=== PATIENT | male | born 1980 | race Caucasian/White ===

== ENCOUNTER 2022-11-17 04:13 | Inpatient (IN) | payer OTHER ==
[2022-11-17 04:21] LABS: Glucose,Whole Blood 126 mg/dL (70-110)
[2022-11-17] MEDS ORDERED: HEPARIN SODIUM 1,000 UN/ML (10ML VL) ONE (04:27)
[2022-11-17] MEDS ORDERED: fentaNYL (PF) 50 MCG/ML 2 ML AMP ONE (04:27)
[2022-11-17] MEDS ORDERED: VERAPAMIL 2.5 MG/ML 2 ML AMP ONE (04:27)
[2022-11-17] MEDS ORDERED: NALOXONE 0.4 MG/ML 1 ML VIAL IV PRN (04:30)
[2022-11-17 04:36] LABS: Basophils # (A) 0.1 k/uL (0-0.2); Basophils % (A) 0 %; Eosinophils # (A) 0.4 k/uL (0-0.7); Eosinophils % (A) 3 %; HCT 45.4 % (39.0-53.0); HGB 14.6 gm/dL (13.0-17.5); Lymphocytes # (A) 2.7 k/uL (1.0-4.8); Lymphocytes % (A) 18 %; MCH 29.3 pg (25.0-35.0); MCHC 32.2 g/dL (31.0-37.0); MCV 90.9 fL (80.0-100.0); Mean Platelet Volume 7.4; Monocytes # (A) 0.5 k/uL (0-1.0); Monocytes % (A) 3 %; Neutrophils # (A) 10.8 k/uL (1.3-7.7); Neutrophils % (A) 75 %; Platelet Count 253 k/uL (150-450); RBC 4.99 m/uL (4.30-5.90); RDW 13.5 % (11.5-15.5); WBC 14.6 k/uL (3.8-10.6)
--- NOTE | 2022-11-17 04:41 | P.HPIM ---
History of Present Illness H&P Date: 11/17/22 Chief Complaint: chest pain 42 year old male with hypertension patient is transferred from [facility] for STEMI, he went there for chest pain , that woke him up from sleep, denies any cardiac history , describes severe crushing left sided chest pain non radiating with profuse sweating and MONCHO. he was taken to the other facility and diagnosed with STEMI and sent to our facility for cardiac care. patient admits to smoking , denies any illicit drugs no transfer papers were available at time of my evaluation no blood work available at time of evaluation EKG done at our facility shows diffuse T wave inversion in precordial leads. patient rushed to the slab polisher Past Medical History Past Medical History: Hypertension History of Any Multi-Drug Resistant Organisms: None Reported Past Surgical History: No Surgical Hx Reported Past Psychological History: No Psychological Hx Reported Smoking Status: Current every day smoker Past Alcohol Use History: None Reported Past Drug Use History: None Reported Medications and Allergies Allergies Allergy/AdvReac Type Severity Reaction Status Date / Time No Known Allergies Allergy Verified 11/17/22 04:15 Physical Exam Vitals: Vital Signs Temp Pulse Pulse Resp BP Pulse Ox 11/17/22 04:22 84 20 131/94 98 11/17/22 04:18 90 11/17/22 04:13 97.9 F 78 18 132/80 98 Intake and Output 11/16/22 11/16/22 11/17/22 14:59 22:59 06:59 Other: Weight 76.204 kg Results Labs: Abnormal Lab Results - Last 24 Hours (Table) 11/17/22 Range/Units 04:20 POC Glucose (mg/dL) 126 H (70-110) mg/dL Assessment and Plan Assessment: 42 year old male with hypertension transferred to our facility from [facility] for STEMI, I discussed the case with ED doc and I accepted the admission for cardiac workup. with anticipated length of stay > 2 midnights STEMI patient rushed to the slab polisher patient received aspirin and nitro at the other facility will await further cardiology recommendations based on outcome of the left heart cath no transfer records available in the ED with the executive secretary social welfare no blood work available at this time EKG done in our facility showed diffuse precordial T wave inversion home meds are not entered into the system yet patient is full code day team to follow up with cardiology recommendations patient taken to slab polisher at 4:30 6/13
--- NOTE | 2022-11-17 04:43 | ED ---
General Adult HPI - General Chief complaint: Chest Pain Stated complaint: Stemi Time Seen by Provider: 11/17/22 04:18 Source: patient, EMS Mode of arrival: EMS Limitations: no limitations - History of Present Illness Initial comments: This is a 42-year-old male with a past medical history including hypertension presents emergency Department as a transfer patient from our lead emergency department for a STEMI. It was reported the patient had approximately 24 hours of central chest pain that did not resolve so he went to the emergency department. He was diagnosed with an anterior STEMI and started on IV heparin and IV nitroglycerin. 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 The patient was transferred to this facility as a STEMI for further evaluation and treatment via the cardiac Astronomy Professor. On arrival, the patient stated this chest pain was improved and he did not experience any further acute distress at this time. - Related Data Allergies Allergy/AdvReac Type Severity Reaction Status Date / Time No Known Allergies Allergy Verified 11/17/22 04:15 Review of Systems ROS Statement: Those systems with pertinent positive or pertinent negative responses have been documented in the HPI. ROS Other: All systems not noted in ROS Statement are negative. Past Medical History Past Medical History: Hypertension History of Any Multi-Drug Resistant Organisms: None Reported Past Surgical History: No Surgical Hx Reported Past Psychological History: No Psychological Hx Reported Smoking Status: Current every day smoker Past Alcohol Use History: None Reported Past Drug Use History: None Reported General Exam Limitations: no limitations General appearance: alert, in no apparent distress Head exam: Present: atraumatic, normocephalic, normal inspection Eye exam: Present: normal appearance, PERRL Pupils: Present: normal accommodation ENT exam: Present: normal exam, normal oropharynx, mucous membranes moist Neck exam: Present: normal inspection, full ROM Respiratory exam: Present: normal lung sounds bilaterally Cardiovascular Exam: Present: regular rate, normal rhythm, normal heart sounds GI/Abdominal exam: Present: soft, normal bowel sounds Extremities exam: Present: normal inspection, full ROM Back exam: Present: normal inspection, full ROM Neurological exam: Present: alert, oriented X3, CN II-XII intact Psychiatric exam: Present: normal affect, normal mood Skin exam: Present: warm, dry Course Vital Signs 11/17/22 11/17/22 11/17/22 04:13 04:18 04:22 Temperature 97.9 F Pulse Rate 78 84 Pulse Rate [ 90 Nuclear Licensing Engineer ] Respiratory 18 20 Rate Blood Pressure 132/80 131/94 O2 Sat by Pulse 98 98 Oximetry EKG Findings - EKG Comments: EKG Findings:: An EKG was obtained immediately on arrival. EKG was interpreted by myself showing a rate of 72, ID interval 108, QRS duration of 94 and QTC of 408. This EKG showed a sinus rhythm however had ST segment elevations in lead V2, V3. Medical Decision Making - Medical Decision Making Was pt. sent in by a medical professional or institution (, PA, SENIOR [employer]ACLE [address] SQL DEVELOPER, urgent care, hospital, or intermediate...) When possible be specific @ -Yes, [facility] Did you speak to anyone other than the patient for history (EMS, parent, family, police, friend...)? What history was obtained from this source @ -Yes, EMS who stated the patient did do well during transport while on IV heparin and IV nitroglycerin Did you review nursing and triage notes (agree or disagree)? Why? @ -I reviewed and agree with nursing and triage notes Were old charts reviewed (outside hosp., previous admission, EMS record, old EKG, old radiological studies, urgent care reports/EKG's, intermediate records)? Report findings @ -Yes, previous chart@[facility] as well as the initial EKG was reviewed Differential Diagnosis (chest pain, altered mental status, abdominal pain women, abdominal pain men, vaginal bleeding, weakness, fever, dyspnea, syncope, headache, dizziness, GI bleed, back pain, seizure, CVA, palpatations, mental health)? @ -STEMI, pneumothorax, pneumonia EKG interpreted by me (3pts min.). @ -As above X-rays interpreted by me (1pt min.). @ -Chest x-ray was obtained per STEMI protocol however results were not resulted prior to the patient going up to the cardiac catheterization lab. CT interpreted by me (1pt min.). @ -None done U/S interpreted by me (1pt. min.). @ -None done What testing was considered but not performed or refused? (CT, X-rays, U/S, labs)? Why? @ -None What meds were considered but not given or refused? Why? @ -None Did you discuss the management of the patient with other professionals (professionals i.e. Dr., PA, SENIOR [address] SQL DEVELOPER, lab, RT, psych nurse, social group worker, heater planer operator, teacher, motorized squad commanding officer, caser)? Give summary @ -Yes, Dr. Johns was contacted per STEMI protocol. He did accept the patient to the cardiac catheterization lab emergently. The patient's primary care physician was covered by [facility] and Dr. Damon was also contacted and accepted the patient for admission. Change Coordinator SEN[employer] [address] [address] SQL DEVELOPER was also contacted for admission to the ICU. Was smoking cessation discussed for >3mins.? @ -Yes Was critical care preformed (if so, how long)? @ -Yes, see above Were there social determinants of health that impacted care today? How? (Homelessness, low income, unemployed, alcoholism, drug addiction, transportation, low edu. Level, literacy, decrease access to med. care, group home, rehab)? @ -No Was there de-escalation of care discussed even if they declined (Discuss DNR or withdrawal of care, Hospice)? DNR status @ -No What co-morbidities impacted this encounter? (DM, HTN, Smoking, COPD, CAD, Cancer, CVA, ARF, Chemo, Hep., AIDS, mental health diagnosis, sleep apnea, morbid obesity)? @ -Hypertension Was patient admitted / discharged? Hospital course, mention meds given and route, prescriptions, significant lab abnormalities, going to OR and other pertinent info. @ -The patient was seen and evaluated emergency department. Physical exam, the patient was resting in bed without any acute distress. A STEMI activation was made prior to arrival. The cardiac catheterization lab was arty in the building as there was a previous STEMI 1 hour prior to arrival of the patient. The patient continued on IV heparin and nitroglycerin. A repeat EKG did show continued STEMI and Dr. Johns was contacted and accepted the patient for cardiac catheterization lab emergently. The patient was agreeable to this and all discretions were answered. The patient was admitted to the cardiac laboratory tester in stable condition. Undiagnosed new problem with uncertain prognosis? @ -No Drug Therapy requiring intensive monitoring for toxicity (Heparin, Nitro, Insulin, Cardizem)? @ -Heparin Were any procedures done? @ -No Diagnosis/symptom? @ -STEMI Acute, or Chronic, or Acute on Chronic? @ -Acute Uncomplicated (without systemic symptoms) or Complicated (systemic symptoms)? @ -Complicated Side effects of treatment? @ -No Exacerbation, Progression, or Severe Exacerbation? @ -No Poses a threat to life or bodily function? How? (Chest pain, [place], ME, pneumonia, PE, COPD, DKA, ARF, appy, cholecystitis, CVA, Diverticulitis, Homicidal, Suicidal, threat to staff... and all critical care pts) @ -Yes, continued ACS and STEMI can lead to permanent cardiac damage and pos sible . - Lab Data Lab Results 11/17/22 Range/Units 04:20 POC Glucose (mg/dL) 126 H (70-110) mg/dL POC Glu Front Office Assistant Carmen Tuttle Critical Care Time Critical Care Time: Yes Total Critical Care Time: 31 Disposition Clinical Impression: ST elevation myocardial infarction (STEMI) Disposition: ADMITTED IP TO THIS [facility] Condition: Serious Is patient prescribed a controlled substance at d/c from ED?: No Referrals: None,Stated [REFERRING] - 1-2 days Time of Disposition: 04:15 Decision to Admit Reason: Admit from EC Decision Date: 11/17/22 Decision Time: 04:15
[2022-11-17 04:46] LABS: INR 0.9 (<1.2); Partial Thromboplastin Time 86.3 sec (22.0-30.0); Prothrombin Time 9.9 sec (9.0-12.0)
[2022-11-17] MEDS ORDERED: fentaNYL (PF) 50 MCG/ML 2 ML AMP IVP ONE (04:48)
[2022-11-17] MEDS ORDERED: LIDOCAINE 1% INJ 10MG/ML (5 ML VIAL-PF) SQ ONE (04:48)
[2022-11-17] MEDS ORDERED: VERAPAMIL SYRINGE (5 MG/10 ML) INTRAARTER ONE (04:50)
[2022-11-17] MEDS ORDERED: SODIUM CHLORIDE 0.9% 1,000 ML IV ONE (04:51)
[2022-11-17] MEDS ORDERED: CLOPIDOGREL 75 MG TAB ONE (04:56)
[2022-11-17] MEDS ORDERED: CLOPIDOGREL 75 MG TAB PO ONE (05:00)
[2022-11-17] MEDS: HEPARIN SODIUM 1,000 UN/ML (10ML VL) IVP ONE ×3 (05:00→05:43)
[2022-11-17 05:18] LABS: ALT 20 U/L (4-49); AST 37 U/L (17-59); African American GFR (CKD) >90 (>60 ml/min/1.73 sqM); Albumin 4.2 g/dL (3.5-5.0); Alkaline Phosphatase 109 U/L (38-126); Anion Gap 9 mmol/L; Blood Urea Nitrogen 10 mg/dL (9-20); Calcium 9.4 mg/dL (8.4-10.2); Carbon Dioxide 24 mmol/L (22-30); Chloride 104 mmol/L (98-107); Glucose 123 mg/dL (74-99); Non-African American GFR(CKD) >90 (>60 ml/min/1.73 sqM); Potassium 3.9 mmol/L (3.5-5.1); Sodium 137 mmol/L (137-145); Total Bilirubin 0.4 mg/dL (0.2-1.3)
[2022-11-17] MEDS ORDERED: IOPAMIDOL-370 100ML BTL INJ ONE ×3 (05:28→05:39)
[2022-11-17] MEDS ORDERED: ZOLPIDEM 5 MG TAB PO PRN (05:51)
[2022-11-17] MEDS ORDERED: RX INFO: IV CONTRAST WAS GIVEN 1 EACH MISC MISCELLANE PRN (05:51)
[2022-11-17] MEDS ORDERED: MAG HYDROX/AL HYDROX/SIMETH 30 ML CUP PO PRN (05:51)
[2022-11-17] MEDS ORDERED: NITROGLYCERIN SL TABS 0.4 MG TAB SUBLINGUAL PRN (05:51)
[2022-11-17] MEDS ORDERED: ATROPINE SULFATE 0.1 MG/ML 10ML SYRINGE IV PRN (05:51)
--- NOTE | 2022-11-17 05:59 | P.CRDCN ---
History of Present Illness Consult date: 11/17/22 History of present illness: History of Present Illness: The patient is a 42-year-old male known history of chronic tobacco use, hypertension who presented to [facility] with symptoms of chest discomfort that started over 24 hours ago. In the emergency room and mild left his EKG showed QS pattern in V1 to V3 with T-wave inversion and mild ST elevation. His troponin was mildly elevated. The patient was transferred to [facility] to undergo further evaluation. He is not a candidate for thrombolytics because of prior history of spontaneous intercranial bleed. He has no prior history of cardiac disease, usually active physically without associated dyspnea, dizziness or Palpitations. He has no PND, orthopnea or peripheral edema. His discomfort started over 24 hours, on and off initially and subsequently persistent. His pain was better upon transfer. Medications: Lisinopril, Zoloft Review of Systems: Respiratory: No history of asthma, bronchitis or recent cough. GI: No nausea or vomiting . No history of peptic ulcer disease. No recent GI bleed. : No hematuria or dysuria. Nervous System: No stroke or seizure. Physical Examination: 62-year-old male, alert oriented, evaluated in the cardiac catheterization laboratory ,Blood pressure 130/70, Heart rate 70 Head: Normocephalic. Eyes: Sclerae nonicteric. Neck: Good carotid upstroke, no bruit, no jugular venous distention. Lungs: Clear to auscultation. Heart: Regular rate and rhythm, S1-S2, no S3, no rub. Systolic ejection murmur. Abdomen: Soft nontender, positive bowel sounds no organomegaly. Extremities: No edema, intact distal pulses. Labs: BUN 10, creatinine 0.7, troponin 0.67, hemoglobin 14.8. EKG: Sinus mechanism with T-wave inversion from lead V1 to V4 with mild ST segment elevation in QS pattern in V1 to V3. Impression: 1. Anterior wall myocardial infarction, over 12 hours with persistent pain 2. History of smoking 3. History of hypertension Plan: 1. In view of the persistent symptoms I have recommended to proceed with cardiac catheterization, the procedure and the risks and the complications were discussed with the patient who was in agreement to proceed 2. Further recommendations will be made depending on the cardiac catheterization results 3. Obtain an echocardiogram with Doppler 4. Smoking cessation 5. Thank you for this consult we will follow with you Past Medical History Past Medical History: Hypertension History of Any Multi-Drug Resistant Organisms: None Reported Past Surgical History: No Surgical Hx Reported Past Psychological History: No Psychological Hx Reported Smoking Status: Current every day smoker Past Alcohol Use History: None Reported Past Drug Use History: None Reported Medications and Allergies Allergies Allergy/AdvReac Type Severity Reaction Status Date / Time No Known Allergies Allergy Verified 11/17/22 04:15 Physical Exam Vitals: Vital Signs Temp Pulse Pulse Resp BP Pulse Ox 11/17/22 04:22 84 20 131/94 98 11/17/22 04:18 90 11/17/22 04:13 97.9 F 78 18 132/80 98 Intake and Output 11/16/22 11/16/22 11/17/22 14:59 22:59 06:59 Intake Total 100 Balance 100 Intake: IV 100 Other: Weight 76.204 kg Results 11/17/22 04:21 11/17/22 04:21 Cardiac Enzymes 11/17/22 Range/Units 04:21 AST 37 (17-59) U/L Coagulation 11/17/22 Range/Units 04:21 PT 9.9 (9.0-12.0) sec APTT 86.3 H (22.0-30.0) sec CBC 11/17/22 Range/Units 04:21 WBC 14.6 H (3.8-10.6) k/uL RBC 4.99 (4.30-5.90) m/uL Hgb 14.6 (13.0-17.5) gm/dL Hct 45.4 (39.0-53.0) % Plt Count 253 (150-450) k/uL Comprehensive Metabolic Panel 11/17/22 Range/Units 04:21 Sodium 137 (137-145) mmol/L Potassium 3.9 (3.5-5.1) mmol/L Chloride 104 (98-107) mmol/L Carbon Dioxide 24 (22-30) mmol/L BUN 10 (9-20) mg/dL Creatinine 0.76 (0.66-1.25) mg/dL Glucose 123 H (74-99) mg/dL Calcium 9.4 (8.4-10.2) mg/dL AST 37 (17-59) U/L ALT 20 (4-49) U/L Alkaline Phosphatase 109 (38-126) U/L Total Protein 7.0 (6.3-8.2) g/dL Albumin 4.2 (3.5-5.0) g/dL Current Medications Generic Name Dose Route Start Last Admin Trade Name Freq PRN Reason Stop Dose Admin Al Hydroxide/Mg Hydroxide 30 ml 11/17/22 05:51 Mag Hydrox/Al Hydrox/Simeth 30 Ml Cup PO Q4HR PRN Heartburn Aspirin 81 mg 11/17/22 09:00 Aspirin 81 Mg PO DAILY [facility] Atorvastatin Calcium 80 mg 11/17/22 21:00 Atorvastatin 80 Mg Tab PO HS [facility] Atropine Sulfate 0.5 mg 11/17/22 05:51 Atropine Sulfate 0.1 Mg/Ml 10ml Syringe IV ONCE PRN Symptomatic Bradycardia Clopidogrel Bisulfate 75 mg 11/18/22 09:00 Clopidogrel 75 Mg Tab PO DAILY [facility] Protocol Sodium Chloride 1,000 ml/ IV 1,000 mls @ 76.204 mls/hr 11/17/22 06:00 Solution IV 11/17/22 10:01 .[id number] MAO 1 ML/KG/HR Lisinopril 5 mg 11/17/22 09:00 Lisinopril 10 Mg Tab PO DAILY [facility] Metoprolol Tartrate 25 mg 11/17/22 09:00 Metoprolol Tartrate 25 Mg Tab PO BID [facility] Miscellaneous Information 1 each 11/17/22 05:51 Rx Info: Iv Contrast Was Given 1 Each Misc MISCELLANE 11/19/22 05:51 DAILY PRN Per Protocol Naloxone HCl 0.2 mg 11/17/22 04:30 Naloxone 0.4 Mg/Ml 1 Ml Vial IV Q2M PRN Opioid Reversal Nitroglycerin 0.4 mg 11/17/22 05:51 Nitroglycerin Sl Tabs 0.4 Mg Tab SUBLINGUAL Q5M PRN Chest Pain Spironolactone 25 mg 11/17/22 09:00 Spironolactone 25 Mg Tab PO DAILY [facility] Zolpidem Tartrate 5 mg 11/17/22 05:51 Zolpidem 5 Mg Tab PO HS PRN Insomnia Intake and Output 11/16/22 11/16/22 11/17/22 14:59 22:59 06:59 Intake Total 100 Balance 100 Intake: IV 100 Other: Weight 76.204 kg Patient Weight 11/17/22 06:59 Weight 76.204 kg 11/17/22 04:21 06/13/23 04:21
[2022-11-17] MEDS ORDERED: SODIUM CHLORIDE 0.9% 1,000 ML in EMPTY BAG 1 BAG IV SCH (06:00)
[2022-11-17 06:03] LABS: Glucose,Whole Blood 134 mg/dL (70-110)
--- NOTE | 2022-11-17 06:07 | P.CARDCATH ---
Date of Procedure: 11/17/22 Description of Procedure: Cardiac Catheterization: The patient is a 42-year-old male with a history of hypertension and chronic tobacco use who presented with chest discomfort that started 24 hours prior to presentation and evidence of anterior wall myocardial infarction. Because of the persistent symptoms the patient was transferred to [facility]. Recommendations were made regarding cardiac catheterization, the risks and the complications were discussed with the patient who is in full understanding and agreement. Procedure Description: Patient was brought to warehouse general laborer in fasting semi-sedated state after receiving Fentanyl and Benadryl achieiving moderate conscious sedated state. Using Xylocaine Anesthesia and Seldinger technique, a 6-[place] sheath was introduced in the right radial artery . Subsequently, selective coronary angiography was performed using a 5-[place] 3.5 bend right Tal catheter and 6-[place] 3.75 EBU guiding catheter. Multiple views of the coronary artery including hemiaxial views were obtained. The 5- [place] pigtail catheter was used to cross the aortic valve and LVEDP was calculated. After obtaining images of the left consistent and performing PCI images of the right coronary system were performed. PCI: Using a 6-[place] 3.75 EBU guiding catheter and after cannulating the left main a 0.014 BMW J-wire with a super cross microcatheter were introduced. The total occlusion was crossed and the wire was positioned distally. After removing the microcatheter a 2.5 x 12 mm Treck was advanced and inflations at 8 vy were done. Subsequently the balloon was removed and a [employer] [place] eye intravascular ultrasound catheter was advanced and imaging was performed. Subsequently a 3.0 x 28 mm Xience rené point stent was deployed at 14 vy. Repeat intravascular ultrasound imaging was performed in the 3.5 x 15 mm NC Treck balloon was advanced and one inflation the distal stent was done at 10 vy and after removing the balloon 4.0 x 15 mm NC Treck was advanced in one inflation in the proximal segment was done at 10 vy. Following that the wire was removed and images were obtained and revealed stable successful stenting. Following that, catheter and sheath were removed. Hemostasis was obtained with deployment of TR band . There was no immediate complication. Patient was returned to room in stable condition. Of note, the patient received a total of 7000 units of intravenous heparin as well as intra-arterial verapamil. He received an oral loading dose of clopidogrel. His ACT was monitored. His chest discomfort resolved at the end of the procedure. Findings: Left main: This is a short size vessel, bifurcating into LAD and left cir cumflex, left main has no high-grade stenosis LAD: This vessel is totally occluded in the midsegment right after the takeoff of the first septal city dispatch supervisor with minimal antegrade flow. Left circumflex: This is a large dominant vessel, giving rise to a large obtuse marginal branch and distally bifurcating into PDA and PLV, the left circumflex has no evidence of high-grade stenosis RCA: This is a small nondominant vessel that has no evidence of high-grade stenosis Left Ventriculogram: Not performed Hemodynamics: There was no gradient across the aortic valve , LVEDP was 14-18 mmHg Conclusion: 1. Totally occluded mid LAD 2. No obstructive disease in the left circumflex and RCA 3. Left dominance 4. Successful stenting of the mid LAD with reduction of stenosis from 100% to 0% with intravascular ultrasound imaging. Recommendations: The patient will continue on aspirin and Plavix without any interruption for at least one year in addition to aggressive coronary risks modifications. The findings and the recommendations were discussed with the patient and the family and they were in full understanding and agreement. Duration of sedation is 54 minutes.
--- NOTE | 2022-11-17 06:29 | P.CNPUL ---
History of Present Illness Consult date: 11/17/22 Requesting physician: Vaughn Rooney Reason for consult: other (ICU management) Chief complaint: Chest pain History of present illness: I am seeing this patient in new consultation today 11/17/2022 in the intensive care unit for acute ST elevation myocardial infarction status post successful st enting of the left anterior descending artery. Patient is a 42-year-old white male with past medical history significant for hypertension and prior intracranial hemorrhage. He is also a 1 pack per day smoker. Denies any family history of premature heart disease. Patient reports chest pain on and off for the last couple weeks. He did start to have a substernal crushing chest pain that started Wednesday a.m. and has been continuous for almost 24 hours. Denies lower extremity edema, orthopnea, PND, lightheadedness, syncope. He initially presented to [facility] emergency department and was diagnosed with an anterior STEMI. Initial troponin at outside facility was 0.61. He was started on IV heparin and IV nitroglycerin, and transferred to [facility] for intervention. The patient was emergently taken to the [facility] on arrival, and underwent successful stenting of the mid LAD. Patient is currently sitting up in bed, on room air, in no acute distress. He denies any further chest pain. There is a right radial TR band in place, without hematoma. CBC on arrival shows a WBC count 14.6, hemoglobin 14.6, hematocrit 45.4, platelets 253. BMP was unremarkable. Vital signs are stable at this time. Review of Systems REVIEW OF SYSTEMS: CONSTITUTIONAL: Denies any recent significant weight loss or weight gain. EYES: Denies change in vision. EARS, NOSE, MOUTH, THROAT: Denies headaches, denies sore throat. CARDIOVASCULAR: Denies chest pain, palpitations or syncopal episodes. RESPIRATORY: Denies shortness of breath, cough, congestion or hemoptysis. GASTROINTESTINAL: Denies change in appetite, abdominal pain, nausea and vomiting, or diarrhea GENITOURINARY: Denies hematuria, denies infections. MUSKULOSKELETAL: Denies pain, denies swelling. INTEGUMENTARY: Denies rash, denies eczema. NEUROLOGICAL: Denies recent memory loss, no recent seizure activity. PSYCHIATRIC: Denies anxiety, denies depression. HEMATOLOGIC/LYMPHATIC: Denies anemia, denies enlarged lymph node Past Medical History Past Medical History: Hypertension History of Any Multi-Drug Resistant Organisms: None Reported Past Surgical History: No Surgical Hx Reported Past Psychological History: No Psychological Hx Reported Smoking Status: Current every day smoker Past Alcohol Use History: None Reported Past Drug Use History: None Reported Medications and Allergies Allergies Allergy/AdvReac Type Severity Reaction Status Date / Time No Known Allergies Allergy Verified 11/17/22 04:15 Physical Exam Vitals: Vital Signs Temp Pulse Pulse Resp BP Pulse Ox 11/17/22 04:22 84 20 131/94 98 11/17/22 04:18 90 11/17/22 04:13 97.9 F 78 18 132/80 98 Intake and Output 11/16/22 11/16/22 11/17/22 14:59 22:59 06:59 Intake Total 100 Balance 100 Intake: IV 100 Other: Weight 76.204 kg GENERAL EXAM: Alert, 42-year-old white male, comfortable in no apparent distress. HEAD: Normocephalic and atraumatic EYES: Normal reaction of pupils, equal size. NOSE: Clear with pink turbinates. THROAT: No erythema or exudates. NECK: No masses, no JVD. CHEST: No chest wall deformity. LUNGS: Equal air entry with no crackles, wheeze, rhonchi or dullness. On room air. No conversational dyspnea or accessory muscle use.. CVS: S1 and S2 normal with no audible murmur, regular rhythm. No extra heart sounds ABDOMEN: No hepatosplenomegaly, active bowel sounds, no guarding or rigidity. SPINE: No scoliosis or deformity SKIN: No rashes CENTRAL NERVOUS SYSTEM: No focal deficits, tone is normal in all 4 extremities. EXTREMITIES: There is no peripheral edema, clubbing, or cyanosis. Peripheral pulses are intact. Results - Laboratory Findings CBC and BMP: 11/17/22 04:21 11/17/22 04:21 PT/INR, D-dimer PT 9.9 sec (9.0-12.0) 11/17/22 04:21 INR 0.9 (<1.2) 11/17/22 04:21 Abnormal lab findings: Abnormal Labs 11/17/22 11/17/22 11/17/22 04:20 04:21 04:21 WBC 14.6 H Neutrophils # 10.8 H APTT 86.3 H Glucose POC Glucose (mg/dL) 126 H 11/17/22 11/17/22 04:21 06:02 WBC Neutrophils # APTT Glucose 123 H POC Glucose (mg/dL) 134 H - Diagnostic Findings Chest x-ray: image reviewed Assessment and Plan Assessment: Acute ST segment elevation myocardial infarction status post successful stenting to the mid left anterior descending artery POD #0 Coronary artery disease Essential hypertension Chronic nicotine dependence Plan: Patient's medications, labs, chest x-ray reviewed On room air Continue dual antiplatelet per cardiology Continue Lisinopril, Metoprolol, Sprinolactone Smoking cessation education performed We will sign off, and see on an as needed bases. I have personally seen and examined the patient, performed the documentation and the assessment and plan as written. Number of minutes spent on the visit:20 Time with Patient: Greater than 30
--- NOTE | 2022-11-17 07:13 | XR ---
EXAMINATION TYPE: XR chest 1V portable DATE OF EXAM: 11/17/2022 Comparison: None Clinical History: 45-year-old male with CHEST PAIN Findings: Heart normal size. There may be mild tortuosity or ectasia of the ascending aorta. No consolidation o r pleural effusion. Impression: Possible mild tortuosity or ectasia of the ascending aorta. No acute process otherwise seen.
[2022-11-17] MEDS ORDERED: lisinopriL 5 MG TAB PO SCH (09:00)
[2022-11-17] MEDS: ASPIRIN 81 MG PO SCH (09:49)
[2022-11-17] MEDS: NICOTINE 21MG/24HR PATCH TRANSDERM SCH (09:49)
[2022-11-17] MEDS: METOPROLOL TARTRATE 25 MG TAB PO SCH ×2 (09:49→20:58)
[2022-11-17] MEDS: SPIRONOLACTONE 25 MG TAB PO SCH (09:49)
--- NOTE | 2022-11-17 10:03 | PN ---
PROGRESS NOTE SUBJECTIVE: Mr. Pino is a 42-year-old gentleman transferred from [facility] yesterday with anterior CT, underwent stenting of LAD by Dr. Ayala. He is doing well, stable hemodynamically. He is on dual-antiplatelet therapy, statins, and Aldactone. Echocardiogram is being performed today. OBJECTIVE: VITAL SIGNS: Stable. NECK: No JVD. CARDIOVASCULAR: S1, S2 heard normally. LUNGS: Clear. ABDOMEN: Unchanged. EXTREMITIES: Lower extremities unchanged. The patient is a smoker. We discussed smoking cessation and importance. He understands and will work on this diligently after discharge as well. At this time, we will continue current medications, and increase activity. We will review echo when performed. The patient is stable, doing well post PCI. MMODL / IJN: [id number] /
--- NOTE | 2022-11-17 12:24 | CA ---
Transthoracic Echo Report Name: Malik Pino Age: 42 Gender: M : 1980 Exam Date: 11/17/2022 07:39 Exam Location: [facility] Ht (in): 69 Wt (lb): 168 Ordering Physician: Kelly Johns MD ([id number]) Attending/Referring Phys: Supervisor Nurse Uma Davies RDCS Procedure CPT: Indications: [place] Cardiac Hx: Technical Quality: Fair Contrast 1: Lumason Total Dose (mL): 1 Contrast 2: Total Dose (mL): MEASUREMENTS (Male / Female) Normal Values 2D ECHO LV Diastolic Diameter PLAX 5.1 cm 4.2 - 5.9 / 3.9 - 5.3 cm LV Systolic Diameter PLAX 3.9 cm IVS Diastolic Thickness 1.2 cm 0.6 - 1.0 / 0.6 - 0.9 cm LVPW Diastolic Thickness 1.1 cm 0.6 - 1.0 / 0.6 - 0.9 cm LV Relative Wall Thickness 0.4 RV Internal Dim ED PLAX 3.8 cm LA Volume 38.3 cm??? 18 - 58 / 22 - 52 cm??? M-MODE Aortic Root Diameter MM 3.3 cm LA Systolic Diameter MM 3.3 cm LA Ao Ratio MM 1.0 AV Cusp Separation MM 2.2 cm DOPPLER AV Peak Velocity 145.3 cm/s AV Peak Gradient 8.4 mmHg AV Mean Velocity 102.4 cm/s AV Mean Gradient 4.6 mmHg AV Velocity Time Integral 29.2 cm LVOT Peak Velocity 107.6 cm/s LVOT Peak Gradient 4.6 mmHg LVOT Velocity Time Integral 20.6 cm MV Area PHT 4.5 cm??? Mitral E Point Velocity 93.5 cm/s Mitral A Point Velocity 62.3 cm/s Mitral E to A Ratio 1.5 MV Deceleration Time 167.2 ms MV E' Velocity 7.8 cm/s Mitral E to MV E' Ratio 12.0 TR Peak Velocity 250.5 cm/s TR Peak Gradient 25.1 mmHg Right Ventricular Systolic Press 29.6 mmHg FINDINGS Left Ventricle Mildly increased left ventricular wall thickness. Left ventricular cavity size normal. Hypokinetic anterior wall. [place] hypokinetic. Apical anterior and apical septal white hypokinesis. Left ventricular ejection fraction is estimated at 40-45 %. Right Ventricle Mild right ventricular dilatation. Right ventricular systolic pressure within normal limits. Right Atrium Normal right atrial size. Left Atrium Normal left atrial size. Mitral Valve Structurally normal mitral valve. No mitral stenosis. Mild mitral regurgitation. Aortic Valve Trileaflet aortic valve. No aortic stenosis. Trace aortic regurgitation. Tricuspid Valve Structurally normal tricuspid valve. Mild tricuspid regurgitation. Pulmonic Valve Structurally normal pulmonic valve. Pericardium No pericardial effusion. Aorta Normal size aortic root and proximal ascending aorta. CONCLUSIONS 1. Moderately impaired left ventricle systolic function with segmental wall motion abnormality 2. Mild mitral and tricuspid regurgitation Previewed by: Dr. Kelly Johns MD (Electronically Signed) Final Date: 17 November 2022 12:23
[2022-11-17 12:48] VITALS: BMI 24.7
[2022-11-17 14:10] LABS: Chol/HDL Ratio 3.31 Ratio; LDL Cholesterol,Calculated 85.4 mg/dL (0.0-131.0); VLDL Calculation 17.22 mg/dL (5.00-40.00)
[2022-11-17] MEDS: ATORVASTATIN 80 MG TAB PO SCH (20:58)
[2022-11-18 04:54] LABS: African American GFR (CKD) >90 (>60 ml/min/1.73 sqM); Anion Gap 8 mmol/L; Blood Urea Nitrogen 12 mg/dL (9-20); Calcium 9.4 mg/dL (8.4-10.2); Carbon Dioxide 26 mmol/L (22-30); Chloride 105 mmol/L (98-107); Glucose 104 mg/dL (74-99); Non-African American GFR(CKD) >90 (>60 ml/min/1.73 sqM); Potassium 4.4 mmol/L (3.5-5.1); Sodium 139 mmol/L (137-145)
[2022-11-18] MEDS: CLOPIDOGREL 75 MG TAB PO SCH (08:02)
[2022-11-18] MEDS: SPIRONOLACTONE 25 MG TAB PO SCH (08:02)
[2022-11-18] MEDS: lisinopriL 10 MG TAB PO SCH (08:02)
[2022-11-18] MEDS: NICOTINE 21MG/24HR PATCH TRANSDERM SCH (08:02)
[2022-11-18] MEDS: ASPIRIN 81 MG PO SCH (08:02)
[2022-11-18] MEDS: METOPROLOL TARTRATE 25 MG TAB PO SCH ×2 (08:02→20:25)
[2022-11-18] MEDS: SERTRALINE 50 MG TAB PO SCH (08:03)
--- NOTE | 2022-11-18 13:02 | P.PN ---
Subjective Progress Note Date: 11/18/22 Pt doing well post cath, no complaints. Gen: awake, alert HEENT: normocephalic, atraumatic, good hearing acuity, moist mucous membranes Resp: good air exchange, breathing comfortably with no accessory muscle use CVS: good distal perfusion x 4, GI: soft, NTTP, ND : no SPT, no CVAT, stanley catheter not present MSK: no pitting edema, no clubbing Neuro: non-focal, moving all extremities Psych: cooperative, euthymic mood Assessment/Plan: 42 year old male with hypertension transferred to our facility from [facility] for STEMI, I discussed the case with ED doc and I accepted the admission for cardiac workup. with anticipated length of stay > 2 midnights STEMI continue ASA, plavix Echo reviewed, moderately reduced EF 45% continue beta-eneida appreciate cardiology consult no transfer records available in the ED with the collision estimator no blood work available at this time EKG done in our facility showed diffuse precordial T wave inversion home meds are not entered into the system yet patient is full code Objective - Vital Signs Vital signs: Vital Signs Temp 98.1 F 11/18/22 11:53 Pulse 50 L 11/18/22 11:53 Resp 19 11/18/22 12:00 BP 111/74 11/18/22 11:53 Pulse Ox 100 11/18/22 11:53 FiO2 Intake & Output 11/17/22 11/18/22 11/18/22 18:59 06:59 18:59 Intake Total 1640 555 Output Total 0 0 Balance 1640 555 0 Weight 76.204 kg 75.9 kg Intake: IV 900 75 Sodium Chloride 0.9% 1, 900 75 000 ml In Empty Bag 1 bag @ 1 ML/KG/HR 76.204 mls/ hr IV .[id number] MAO Rx#: [id number] Oral 740 480 Output: Urine 0 0 Other: Voiding Method Toilet Toilet Toilet Urinal # Voids 1 1 0 # Bowel Movements 1 - Labs CBC & Chem 7: 11/17/22 04:21 11/18/22 03:56 Labs: Abnormal Lab Results - Last 24 Hours (Table) 11/18/22 Range/Units 03:56 Glucose 104 H (74-99) mg/dL
--- NOTE | 2022-11-18 13:54 | PN ---
PROGRESS NOTE SUBJECTIVE: Mr. Pino suffered from an acute anterior MS, transferred from [facility], underwent stenting early hours of yesterday. He is doing well. Ejection fraction is 40% to 45% with anteroapical septal hypokinesia, doing well. OBJECTIVE: HEART: S1 and S2 heard normally. No significant murmurs. LUNGS: Clear. ABDOMEN: Unchanged. LOWER EXTREMITIES: Unchanged. PLAN: To continue current medications, increase activity, and possible discharge tomorrow. We will move him to telemetry today. Right radial site is clean and dry with a good pulse, and he is on appropriate medications including dual-antiplatelet therapy, statins, and beta-blockers. MMODL / IJN: [id number] /
[2022-11-18] MEDS: ATORVASTATIN 80 MG TAB PO SCH (20:25)
[2022-11-19] MEDS: SPIRONOLACTONE 25 MG TAB PO SCH (09:23)
[2022-11-19] MEDS: SERTRALINE 50 MG TAB PO SCH (09:23)
[2022-11-19] MEDS: NICOTINE 21MG/24HR PATCH TRANSDERM SCH (09:23)
[2022-11-19] MEDS: CLOPIDOGREL 75 MG TAB PO SCH (09:23)
[2022-11-19] MEDS: ASPIRIN 81 MG PO SCH (09:23)
[2022-11-19] MEDS: lisinopriL 10 MG TAB PO SCH (09:23)
[2022-11-19] MEDS: METOPROLOL TARTRATE 25 MG TAB PO SCH (09:23)
--- NOTE | 2022-11-19 11:27 | P.DS ---
Providers Date of admission: 11/17/22 04:30 Attending physician: Camryn Damon MD Consults: 11/17/22 04:30 Consult Physician Stat Consulting Provider: Dilip Rick Consult Reason/Comments: STEMI Do you want consulting provider notified?: Already Contacted Consult Physician Stat Consulting Provider: Kelly Johns Consult Reason/Comments: STEMI Do you want consulting provider notified?: Already Contacted 11/17/22 05:51 Consult Physician Routine Consulting Provider: [facility] Consult Reason/Comments: Post Interventional Patient Do you want consulting provider notified?: Already Contacted Primary care physician: [facility] Course: Discharge Diagnosis: STEMI Newly diagnosed ischemic cardiomyopathy Hypertension Hospital Course: 42 year old male with hypertension transferred to our facility from [facility] for STEMI. Patient had a heart catheter done with successful PCI to the mid LAD. Echocardiogram showed moderate impaired left ventricular function with ejection fraction 40-45% with segmental wall abnormality. Patient was started on aspirin atorvastatin and Plavix and metoprolol. Patient also started on spironolactone. Patient was then deemed stable for discharge. He was instructed to follow cardiology in one week. Patient is also counseled on smoking cessation. Patient seen and examined at bedside on 11/19/2022.[] Vital signs reviewed and stable. General: [non toxic], [no distress], [appears at stated age] Derm: [warm], [dry] Head: [atraumatic], [normocephalic], [symmetric] Eyes: [EOMI], [no lid lag], [anicteric sclera] Mouth: [no lip lesion], [mucus membranes moist] Cardiovascular: [S1S2 reg], [no murmur], [positive posterior tibial pulse saranya ateral], Lungs: [CTA bilateral], [no rhonchi, no rales] , [no accessory muscle use] Abdominal: [soft], [ nontender to palpation], [no guarding], [no appreciable organomegaly] Ext: [no gross muscle atrophy], [no edema], [no contractures] Neuro: [ CN II-XI grossly intact], [no focal neuro deficits] Psych: [Alert], [oriented], [appropriate affect] A total of [33] minutes of time were spent preparing this complex discharge summary . Patient Condition at Discharge: Good Plan - Discharge Summary Discharge Rx Participant: Yes New Discharge Prescriptions: New Spironolactone [Aldactone] 25 mg PO DAILY 30 Days #30 tab Atorvastatin [Lipitor] 80 mg PO HS 30 Days #30 tab Aspirin 81 mg PO DAILY 30 Days #30 tab Metoprolol Tartrate [Lopressor] 25 mg PO BID 30 Days #60 tab Clopidogrel [Plavix] 75 mg PO DAILY 30 Days #30 tab Continue lisinopriL [Zestril] 10 mg PO DAILY Sertraline HCl [Zoloft] 50 mg PO DAILY Discharge Medication List Sertraline HCl [Zoloft] 50 mg PO DAILY 11/17/22 [History] lisinopriL [Zestril] 10 mg PO DAILY 11/17/22 [History] Aspirin 81 mg PO DAILY 30 Days #30 tab 11/19/22 [Rx] Atorvastatin [Lipitor] 80 mg PO HS 30 Days #30 tab 11/19/22 [Rx] Clopidogrel [Plavix] 75 mg PO DAILY 30 Days #30 tab 11/19/22 [Rx] Metoprolol Tartrate [Lopressor] 25 mg PO BID 30 Days #60 tab 11/19/22 [Rx] Spironolactone [Aldactone] 25 mg PO DAILY 30 Days #30 tab 11/19/22 [Rx] Follow up Appointment(s)/Referral(s): None,Stated [REFERRING] - 1-2 days Kelly Johns MD [STAFF PHYSICIAN] - 1 Week Discharge Disposition: HOME SELF-CARE
[2022-11-19 12:08] VITALS: TEMP 98.1
[2022-11-19 12:10] VITALS: BP 121/75; PULSE 66; RESP 18
--- NOTE | 2022-11-19 21:45 | PN ---
PROGRESS NOTE SUBJECTIVE: Mr. Pino is a 42-year-old gentleman, who came on early Wednesday with acute anterior [place], transferred from [facility]. He underwent stenting of LAD by Dr. Johns. Post-PCI course was unremarkable. He is resting comfortably without symptoms. Echo revealed ejection fraction of 40% to 45%. Vitals are stable. He is doing well. No chest pain or shortness of breath. OBJECTIVE: HEART: S1 and S2 heard normally. LUNGS: Clear. ABDOMEN: Unchanged. LOWER EXTREMITIES: Unchanged. PLAN: To discharge him on dual-antiplatelet therapy, beta-blockers, and statins. He will see Dr. Johns in 1 week. Advised not to return to work and do some walking on a regular basis. No strenuous activity and refrain from smoking. MMODL / IJN: [id number] /
== END 2022-11-19 13:02 | disposition home or self-care (01) | DRG 247 ==
LOC: EC 04:13 → 2SICU 04:30 → 3SCARD 11-19 01:13
PROVIDERS: ADMIT Internal Medicine; ATTEND Internal Medicine
PROC: B2151ZZ Fluoroscopy of Left Heart using Low Osmolar Contrast (ICD-10-PCS; 2022-11-17)
PROC: B2111ZZ Fluoroscopy of Multiple Coronary Arteries using Low Osmolar Contrast (ICD-10-PCS; 2022-11-17)
PROC: B240ZZ3 Ultrasonography of Single Coronary Artery, Intravascular (ICD-10-PCS; 2022-11-17)
PROC: 027034Z Dilation of Coronary Artery, One Artery with Drug-eluting Intraluminal Device, Percutaneous Approach (ICD-10-PCS; principal; 2022-11-17 04:22)
PROC: 02703ZZ Dilation of Coronary Artery, One Artery, Percutaneous Approach (ICD-10-PCS; 2022-11-17 04:22)
PROC: 4A023N7 Measurement of Cardiac Sampling and Pressure, Left Heart, Percutaneous Approach (ICD-10-PCS; 2022-11-17 04:22)
DX: I21.09 ST elevation (STEMI) myocardial infarction involving other coronary artery of anterior wall (principal); I08.1 Rheumatic disorders of both mitral and tricuspid valves; I25.10 Atherosclerotic heart disease of native coronary artery without angina pectoris; I25.5 Ischemic cardiomyopathy; I10 Essential (primary) hypertension; F17.210 Nicotine dependence, cigarettes, uncomplicated; I25.2 Old myocardial infarction; Z86.73 Personal history of transient ischemic attack (TIA), and cerebral infarction without residual deficits; Z71.6 Tobacco abuse counseling
CPT/HCPCS: 36415; 71045; 80048; 80053; 80061; 84484; 85025; 85610; 85730; 92978; 93005; 93306; 93458; 99291